=== PATIENT | male | born 1955 | race Caucasian/White ===

== ENCOUNTER → 2023-02-17 07:53 | Outpatient (CLI) | payer MEDICARE, OTHER, SELFPAY ==
--- NOTE | 2023-02-17 07:56 | DI.ECHO.S_ITS ---
[facility] +---------+ : : [address] : : : : [id number] : : : : Phone: [phone]---------+ Echocardiogram Report + + :Name: ANJEL KRUSE Study Date: 02/17/2023 Height: 68 in : :[facility] ReadingLocation: Weight: 216 lb : : Gender: Male BSA: 2.1 m2 : :: 1955 Age: 67 yrs BP: 125/86 mmHg: :Reason For Study: ABDOMINAL AORTIC ANEURYSM HR: 56 : :Ordering Physician: : :IRAJ JALLOH Performed By: JEANNIE ONOFRE : :Referring: IRAJ JALLOH : + + Interpretation Summary The ejection fraction is estimated to be 55-60%. Diastolic parameters suggest probable normal left ventricular diastolic function and normal filling pressures. The right ventricle is normal in size and function. There is moderate aortic stenosis. Pulmonary artery pressures cannot be estimated because of the lack of a measurable TR jet velocity. The ascending aorta is mildly enlarged, 4.2 cm. Procedure: A two-dimensional transthoracic echocardiogram with color flow and Doppler was performed. The study quality was technically adequate. There is no prior echocardiogram noted for this patient. The patient was in normal sinus rhythm during the exam. Left Ventricle: The left ventricle is normal in size and wall thickness. Left ventricular systolic function is normal. The ejection fraction is estimated to be 55-60%. Diastolic parameters suggest probable normal left ventricular diastolic function and normal filling pressures. Right Ventricle: The right ventricle is normal in size and function. Atria: Both atria are normal in size. There is no Doppler evidence for an interatrial shunt. Mitral Valve: The mitral valve is normal in structure and function. There is no mitral regurgitation noted. Aortic Valve: The aortic valve is moderately calcified. There is moderate aortic stenosis. The peak aortic velocity is 3.5 m/sec. The aortic valve mean gradient is 29 mmHg. There is trace aortic regurgitation. Tricuspid Valve: The tricuspid valve is normal in structure and function. No tricuspid regurgitation. Pulmonary artery pressures cannot be estimated because of the lack of a measurable TR jet velocity. Pulmonic Valve: The pulmonic valve is not well seen, but is grossly normal. There is mild pulmonic regurgitation. Great Vessels: The aortic root is borderline dilated. The ascending aorta is mildly enlarged. The IVC is of normal diameter and collapses greater than 50% with a sniff. This suggests a low right atrial pressure of 3 mm Hg. Pericardium/ Pleura There is no pericardial effusion. There is no pleural effusion. MMode/2D Measurements & Calculations LVIDd: 4.3 cm LVOT diam: 2.0 cm LVIDs: 2.8 cm Ao root diam: 3.6 cm FS: 35.4 % asc Aorta Diam: 4.2 cm IVSd: 1.1 cm Ao Arch Diam (Prox Trans): 2.7 cm LVPWd: 1.3 cm LV almonte. diameter/BSA (cm/m^2): 2.0 LV sys. diameter/BSA (cm/m^2): 1.3 LA A2 area: 21.4 cm2 RA long axis: 4.8 cm LA A4 area: 13.8 cm2 RA area: 12.4 cm2 LA length (vol): 3.8 cm RA vol: 27.0 ml LA vol: 66.2 ml RA : 12.8 ml/m2 LA vol index: 31.3 ml/m2 TAPSE: 1.8 cm Doppler Measurements & Calculations Ao V2 max: 340.4 cm/sec LVOT Max Ron: 79.3 cm/sec Ao V2 mean: 259.6 cm/sec LV V1 max P.5 mmHg Ao max P.4 mmHg LV V1 VTI: 17.0 cm Ao mean P.2 mmHg ENRIQUE(I,D): 0.72 cm2 Ao V2 VTI: 76.6 cm ENRIQUE(V,D): 0.76 cm2 sev ratio: 0.22 ENRIQUE indexed to BSA (cm^2/m^2): 0.34 AI P1/2t: 1038 msec AI dec slope: 106.3 cm/sec2 MV E max ron: 42.8 cm/sec PA V2 max: 95.3 cm/sec MV A max ron: 77.2 cm/sec PA V2 mean: 60.7 cm/sec MV E/A: 0.55 PA mean P.7 mmHg Med Peak E' Ron: 3.1 cm/sec PA pr(Accel): 22.5 mmHg E/E' med: 13.7 Lat Peak E' Ron: 5.3 cm/sec E/E' lat: 8.0 E/e' average: 10.9 MV dec time: 0.41 sec SV(LVOT): 55.5 ml Reading Physician:09:54 AM
--- NOTE | 2023-02-17 07:57 | DI.US.S_ITS ---
PROCEDURE: US ABD AORTA ANEURYSM SCREEN INDICATIONS: SCREENING TECHNIQUE: Real time scanning was performed of the aorta and iliac arteries, with image documentation. COMPARISON: None. FINDINGS: Aorta: A mild proximal abdominal aortic aneurysm is seen that measures 3 cm AP x 3.5 cm transversely. Mid-aorta measures 2.3 cm. Distal aortic diameter is 2.3 cm. Iliac arteries: Right common iliac artery measures 1.7 cm. Left common iliac artery measures 1.7 cm. IMPRESSION: Mild proximal abdominal aortic aneurysm seen measuring 3 cm AP x 3.5 cm transversely. If clinically appropriate, please consider follow-up in 3 years. Dictated by: Jonathon Robertson M.D. on 02/17/2023 at 9:39 Approved by: Jonathon Robertson M.D. on 02/17/2023 at 9:41
== END ==
PROVIDERS: PCP Nurse Practitioner Family; Referring Provider Nurse Practitioner Family; Visit Provider Nurse Practitioner Family
DX: Z13.6 Encounter for screening for cardiovascular disorders (principal); I71.40 Abdominal aortic aneurysm, without rupture, unspecified; I35.0 Nonrheumatic aortic (valve) stenosis; I37.1 Nonrheumatic pulmonary valve insufficiency; I77.89 Other specified disorders of arteries and arterioles
CPT/HCPCS: 76706; 93306

== ENCOUNTER → 2023-12-21 11:24 | Outpatient (CLI) | payer MEDICARE, OTHER, SELFPAY ==
--- NOTE | 2023-12-21 | DI.CT.S_ITS ---
PROCEDURE: CT ANGIO CHEST INDICATIONS: Thoracic aortic ectasia TECHNIQUE: After the administration of intravenous contrast, 2 mm thick sections acquired from the pulmonary apices to the posterior costophrenic angles. 3-dimensional maximum intensity projection (MIP) coronal and sagittal reformats were then acquired through the thorax. For radiation dose reduction, the following was used: automated exposure control, adjustment of mA and/or kV according to patient size. COMPARISON: None. FINDINGS: Image quality: Diagnostic. Thoracic aorta: No acute aortic dissection or aneurysm. Ascending thoracic aorta is ectatic measuring 4.3 x 4.3 cm. Minimal calcification of the thoracic aorta. Lower Neck: No enlarged lymph nodes. Thyroid: No thyroid nodules which require sonographic follow up, per consensus guidelines. Axillae: No enlarged lymph nodes. Chest Wall: Unremarkable. Bones: No acute fractures. No aggressive appearing lytic or blastic osseous lesions. Mild multilevel degenerative changes of the spine. Lungs and Pleura: No pneumothorax or pleural effusions. Right fissure solid pulmonary nodule versus lymph node measuring 3 mm (5/186). Dependent atelectasis. Patent central airways. Heart: Heart size is normal. Probable left ventricular hypertrophy. No pericardial effusion.. The mild to moderate LAD coronary vessel calcifications. Calcification of the aortic valve. Pulmonary artery: Normal in caliber. No filling defects in the central pulmonary vasculature Mediastinum and Krissy: No enlarged lymph nodes. Prominent, but not enlarged, right lower paratracheal lymph node measuring 9 mm in short axis which is nonspecific, likely reactive. Esophagus: No wall thickening. No hiatal hernia. Upper Abdomen: Limited arterial phase images of the upper abdomen are unremarkable IMPRESSION: 1. No acute aortic pathology. Ascending thoracic aorta is ectatic measuring 4.3 x 4.3 cm. 2. Calcification of the aortic valve. Heart size is normal with probable left ventricular hypertrophy. 3. Mild to moderate LAD coronary vessel calcifications. 4. Right perifissure solid pulmonary nodule versus lymph node measuring 3 mm. Fleischner guidelines: If patient is low risk, no additional follow-up needed. If patient is high risk, consider repeat CT chest in 12 months. Dictated by: Joshua Leonardo M.D. on 12/21/2023 at 16:43 Approved by: Joshua Leonardo M.D. on 12/21/2023 at 16:48
[2023-12-21 12:20] LABS: Estimated Glomerular Filt Rate > 60 mL/min (>60)
== END ==
PROVIDERS: Radiology Diagnostic Radiology; PCP Nurse Practitioner Family; Referring Provider Internal Medicine Cardiovascular Disease; Visit Provider Internal Medicine Cardiovascular Disease
DX: I77.810 Thoracic aortic ectasia (principal); I25.10 Atherosclerotic heart disease of native coronary artery without angina pectoris
CPT/HCPCS: 36415; 71275; 82565; Q9967

== ENCOUNTER → 2024-01-10 07:19 | Outpatient (CLI) | payer MEDICARE, OTHER, SELFPAY ==
--- NOTE | 2024-01-10 | DI.ECHO.S_ITS ---
[facility]---------+ [facility] +---------+ : : [address] : : : : [id number] : : : : Phone: [phone]---------+ Echocardiogram Report + + :Name: ANJEL KRUSE Study Date: 01/10/2024 Height: 68 in : :[facility] ReadingLocation: Weight: 220 lb : : Gender: Male BSA: 2.1 m2 : :: 1955 Age: 68 yrs BP: 172/100 mmHg: :Reason For Study: THORACIC AORTIC ECTASIA : :Ordering Physician: MEG, : :DENISE Simon Performed By: Sarahi Jimenes : :Referring: DENISE PAZ : + + Interpretation Summary There is mild concentric left ventricular hypertrophy. The ejection fraction is estimated to be 60-65%. Diastolic function could not be accurately assessed due to unobtainable data. The right ventricle is normal in size and function. There is severe aortic stenosis. Pulmonary artery pressures cannot be estimated because of the lack of a measurable TR jet velocity but the IVC suggests a CVP of around 3 mmHg. The ascending aorta is mildly enlarged, 4.2 cm. Compared to the prior study dated 02/17/2023, the gradient across the aortic valve has increased. Procedure: A two-dimensional transthoracic echocardiogram with color flow and Doppler was performed. The study quality was technically adequate. Comparison is made with the echocardiogram of 02/17/2023. The patient was in sinus rhythm with heart rates between 61-68 bpm during the exam. Left Ventricle: The left ventricle is normal in size. There is mild concentric left ventricular hypertrophy. The ejection fraction is estimated to be 60-65%. Diastolic function could not be accurately assessed due to unobtainable data. Right Ventricle: The right ventricle is normal in size and function. Atria: The left atrial size is normal. Right atrial size is normal. There is no Doppler evidence for an interatrial shunt. Mitral Valve: The mitral valve is normal in structure and function. There is no mitral regurgitation noted. Aortic Valve: The aortic valve is moderately calcified. There is severely reduced leaflet mobility. There is severe aortic stenosis. The peak aortic velocity is 5.0 m/sec. The aortic valve mean gradient is 64 mmHg. The calculated aortic valve area is 0.58 cm2. No aortic regurgitation is present. Tricuspid Valve: The tricuspid valve is normal in structure and function. There is trace tricuspid regurgitation. Pulmonary artery pressures cannot be estimated because of the lack of a measurable TR jet velocity but the IVC suggests a CVP of around 3 mmHg. Pulmonic Valve: The pulmonic valve leaflets are thin and pliable; valve motion is normal. There is trace pulmonic regurgitation. Great Vessels: The aortic root is normal size. The ascending aorta is mildly enlarged. The IVC is of normal diameter and collapses greater than 50% with a sniff. This suggests a low right atrial pressure of 3 mm Hg. Pericardium/ Pleura There is no pericardial effusion. There is no pleural effusion. MMode/2D Measurements & Calculations LVIDd: 5.7 cm LVOT diam: 2.1 cm LVIDs: 3.7 cm Ao root diam: 3.6 cm FS: 34.5 % asc Aorta Diam: 4.2 cm IVSd: 1.2 cm Ao Arch Diam (Prox Trans): 3.1 cm LVPWd: 1.2 cm LV almonte. diameter/BSA (cm/m^2): 2.7 LV sys. diameter/BSA (cm/m^2): 1.7 LA A2 area: 22.7 cm2 RA long axis: 6.3 cm LA A4 area: 19.4 cm2 RA area: 22.2 cm2 LA length (vol): 5.5 cm RA vol: 66.7 ml LA vol: 68.5 ml RA : 31.3 ml/m2 LA vol index: 32.2 ml/m2 IVC diam: 1.8 cm RVD1 (basal): 4.0 cm RVD2 (mid): 3.5 cm TAPSE: 1.9 cm Doppler Measurements & Calculations Ao V2 max: 493.6 cm/sec LVOT Max Ron: 82.4 cm/sec Ao V2 mean: 371.2 cm/sec LV V1 max P.7 mmHg Ao max P.5 mmHg LV V1 VTI: 19.6 cm Ao mean P.0 mmHg ENRIQUE(I,D): 0.58 cm2 Ao V2 VTI: 118.3 cm ENRIQUE(V,D): 0.59 cm2 sev ratio: 0.17 ENRIQUE indexed to BSA (cm^2/m^2): 0.27 MV E max ron: 53.1 cm/sec PA pr(Accel): 39.6 mmHg MV A max ron: 95.8 cm/sec MV E/A: 0.55 Med Peak E' Ron: 4.2 cm/sec E/E' med: 12.8 Lat Peak E' Ron: 5.4 cm/sec E/E' lat: 9.8 E/e' average: 11.3 MV dec time: 0.34 sec SV(OT): 68.8 ml Reading Physician:07:52 PM
[2024-01-10 07:50] LABS: Add Manual Diff / Slide Review NO; Basophils Absolute Auto 100 /uL (0-100); Basophils Percent Auto 0.8 % (0-2); Eosinophils Absolute Auto 300 /uL (0-450); Eosinophils Percent Auto 4.4 % (2-4); Hematocrit 39.8 % (41-53); Hemoglobin 13.6 g/dL (13.5-17.5); Lymphocytes Absolute Auto 2000 /uL (1100-4500); Lymphocytes Percent Auto 32.2 % (25-40); Mean Corpuscular HGB Conc 34.2 % (30-36); Mean Corpuscular Hemoglobin 32.8 PG (26-34); Mean Corpuscular Volume 95.8 fL (80-100); Monocytes Absolute Auto 600 /uL (0-900); Neutrophils Absolute Auto 3300 /uL (1500-7000); Neutrophils Percent Auto 52.6 % (50-75); Platelet Count 228 X10^3/uL (150-400); Red Blood Cell Count 4.16 X10^6/uL (4.5-5.9); Red Cell Distribution Width 13.8 % (11.6-14.8); White Blood Cell Count 6.3 X10^3/uL (4.5-11.0)
[2024-01-10 08:00] LABS: Hemoglobin A1C% w Est Avg Glu 6.1 % (4.0-6.0)
[2024-01-10 08:09] LABS: Alanine Aminotransferase 52 IU/L (<50); Albumin 4.2 g/dL (3.5-5.0); Albumin Globulin Ratio 1.4 (1.0-2.8); Alkaline Phosphatase 69 U/L (38-126); Aspartate Aminotransferase 44 IU/L (17-59); BUN Creatinine Ratio 26.7 (6-22); Bilirubin Total 0.7 mg/dL (0.2-1.3); Blood Urea Nitrogen 20 mg/dL (9-20); Calcium 9.5 mg/dL (8.4-10.2); Carbon Dioxide 26 mmol/L (22-32); Chloride 108 mmol/L (98-107); Cholesterol 205 mg/dL (140-199); Estimated Glomerular Filt Rate > 60 mL/min (>60); Globulin 3.1 g/dL (1.7-4.1); Glucose 111 mg/dL (80-110); HDL Cholesterol 52 mg/dL (40-60); HEMOLYSIS 23 (0-50); LDL Cholesterol Calculated 130 mg/dL (<100); Magnesium 1.9 mg/dL (1.6-2.3); Potassium 4.5 mmol/L (3.4-5.1); Sodium 140 mmol/L (137-145); Total Protein 7.3 g/dL (6.3-8.2); Triglycerides 113 mg/dL (35-150)
[2024-01-10 08:32] LABS: TSH w/ Reflex to FT4 2.66 uIU/mL (0.47-4.68)
[2024-01-10 08:34] LABS: Prostate Specific Antigen 3.12 ng/mL (0.10-4.00)
== END ==
PROVIDERS: PCP Nurse Practitioner Family; Referring Provider Internal Medicine Cardiovascular Disease; Visit Provider Internal Medicine Cardiovascular Disease
DX: I35.0 Nonrheumatic aortic (valve) stenosis (principal); I10 Essential (primary) hypertension; N40.0 Benign prostatic hyperplasia without lower urinary tract symptoms; E78.5 Hyperlipidemia, unspecified; G47.33 Obstructive sleep apnea (adult) (pediatric); R53.83 Other fatigue; Z13.1 Encounter for screening for diabetes mellitus; Z86.39 Personal history of other endocrine, nutritional and metabolic disease; I77.89 Other specified disorders of arteries and arterioles
CPT/HCPCS: 36415; 80053; 80061; 83036; 83735; 84153; 84443; 85025; 93306

== ENCOUNTER → 2024-01-27 09:45 | Outpatient (CLI) | payer MEDICARE, OTHER, SELFPAY ==
[2024-01-27 11:12] LABS: Add Manual Diff / Slide Review NO; Basophils Absolute Auto 0 /uL (0-100); Basophils Percent Auto 0.5 % (0-2); Eosinophils Absolute Auto 200 /uL (0-450); Eosinophils Percent Auto 2.1 % (2-4); Hematocrit 40.3 % (41-53); Hemoglobin 13.8 g/dL (13.5-17.5); Lymphocytes Absolute Auto 2300 /uL (1100-4500); Lymphocytes Percent Auto 31.1 % (25-40); Mean Corpuscular HGB Conc 34.2 % (30-36); Mean Corpuscular Hemoglobin 32.8 PG (26-34); Monocytes Absolute Auto 800 /uL (0-900); Monocytes Percent Auto 10.5 % (3-14); Neutrophils Absolute Auto 4100 /uL (1500-7000); Neutrophils Percent Auto 55.8 % (50-75); Platelet Count 261 X10^3/uL (150-400); Red Cell Distribution Width 13.8 % (11.6-14.8); White Blood Cell Count 7.4 X10^3/uL (4.5-11.0)
[2024-01-27 11:27] LABS: BUN Creatinine Ratio 26.9 (6-22); Blood Urea Nitrogen 21 mg/dL (9-20); Calcium 9.2 mg/dL (8.4-10.2); Carbon Dioxide 27 mmol/L (22-32); Chloride 103 mmol/L (98-107); Estimated Glomerular Filt Rate > 60 mL/min (>60); Glucose 105 mg/dL (80-110); HEMOLYSIS < 15 (0-50); Potassium 4.6 mmol/L (3.4-5.1); Sodium 135 mmol/L (137-145)
== END ==
PROVIDERS: PCP Nurse Practitioner Family; Referring Provider Internal Medicine; Visit Provider Internal Medicine
DX: I35.9 Nonrheumatic aortic valve disorder, unspecified (principal)
CPT/HCPCS: 36415; 80048; 85025

== ENCOUNTER → 2024-04-22 14:42 | Outpatient (CLI) | payer MEDICARE, OTHER, SELFPAY ==
--- NOTE | 2024-04-22 14:43 | DI.ECHO.S_ITS ---
[facility]---------+ [facility] : : [address] : [address] : : [id number] : : Phone: [phone] Echocardiogram Report + + :Name: ANJEL KRUSE Study Date: 04/22/2024 Height: 68 in : :[facility] ReadingLocation: Weight: 222 lb : : Gender: Male BSA: 2.1 m2 : :: 1955 Age: 68 yrs BP: 153/102 mmHg: :Reason For Study: S/P TAVR : :Ordering Physician: MEG, : :DENISE Simon Performed By: Lawrence Hatfield : :Referring: DENISE PAZ : + + Interpretation Summary Left ventricular wall thickness is mildly increased. The ejection fraction is estimated to be 55-60%. Diastolic parameters suggest probable normal left ventricular diastolic function and normal filling pressures. Borderline left atrial enlargement. The right ventricle is normal in size and function. There is mild mitral regurgitation. There is a well-seated, normal functioning bioprosthetic aortic valve. Pulmonary artery pressures cannot be estimated because of the lack of a measurable TR jet velocity but the IVC suggests a CVP of around 8 mmHg. The ascending aorta is mildly enlarged, 4.3 cm. Compared to the prior study dated 01/10/2024, the aortic valve has now been replaced. Procedure: A two-dimensional transthoracic echocardiogram with color flow and Doppler was performed. The study quality was technically adequate. Comparison is made with the echocardiogram of 01/10/2024. The heart rate ranged between 53-76 bpm during the study. Left Ventricle: Left ventricular wall thickness is mildly increased. The left ventricle is normal in size. The ejection fraction is estimated to be 55- 60%. Diastolic parameters suggest probable normal left ventricular diastolic function and normal filling pressures. Right Ventricle: The right ventricle is normal in size and function. Atria: Borderline left atrial enlargement. Right atrial size is normal. The interatrial septum grossly appears intact with no obvious evidence for an atrial septal defect. Mitral Valve: The mitral valve is normal. There is no mitral valve stenosis. There is mild mitral regurgitation. Aortic Valve: 23mm Ryan Anahi 3 Ulta TAVR visualized. There is a bioprosthetic aortic valve. The peak aortic velocity is 2.14 m/sec. The aortic valve mean gradient is 10.1 mmHg. No aortic regurgitation is present. Tricuspid Valve: The tricuspid valve is normal. There is no tricuspid stenosis. There is trace tricuspid regurgitation. Pulmonary artery pressures cannot be estimated because of the lack of a measurable TR jet velocity but the IVC suggests a CVP of around 8 mmHg. Pulmonic Valve: The pulmonic valve is not well visualized. There is no pulmonic valvular stenosis. There is no pulmonic valvular regurgitation. Great Vessels: The aortic root is normal size. The ascending aorta is mildly enlarged. The IVC is dilated (diameter is greater than 2.1 cm) yet it collapses greater than 50% with a sniff. This suggests a right atrial pressure of 8 mm Hg. Pericardium/ Pleura There is no pericardial effusion. There is no pleural effusion. MMode/2D Measurements & Calculations LVIDd: 6.2 cm LVOT diam: 2.1 cm LVIDs: 4.7 cm Ao root diam: 3.7 cm FS: 24.5 % asc Aorta Diam: 4.3 cm IVSd: 1.2 cm Ao Arch Diam (Prox Trans): 2.8 cm LVPWd: 1.3 cm LV almonte. diameter/BSA (cm/m^2): 2.9 LV sys. diameter/BSA (cm/m^2): 2.2 LA A2 area: 21.9 cm2 RA long axis: 5.5 cm LA A4 area: 21.1 cm2 RA area: 15.8 cm2 LA length (vol): 5.5 cm RA vol: 39.0 ml LA vol: 71.5 ml RA : 18.2 ml/m2 LA vol index: 33.5 ml/m2 IVC diam: 2.1 cm RVD1 (basal): 3.2 cm RVD2 (mid): 3.2 cm TAPSE: 2.7 cm Doppler Measurements & Calculations Ao V2 max: 213.9 cm/sec LVOT Max Ron: 108.8 cm/sec Ao V2 mean: 151.4 cm/sec LV V1 max P.7 mmHg Ao max P.3 mmHg LV V1 VTI: 29.1 cm Ao mean P.1 mmHg ENRIQUE(I,D): 2.2 cm2 Ao V2 VTI: 44.9 cm ENRIQUE(V,D): 1.8 cm2 sev ratio: 0.65 ENRIQUE indexed to BSA (cm^2/m^2): 1.0 MV E max ron: 63.8 cm/sec TR max ron: 244.3 cm/sec MV A max ron: 88.2 cm/sec TR max P.9 mmHg MV E/A: 0.72 PA V2 max: 121.4 cm/sec Med Peak E' Ron: 3.8 cm/sec PA V2 mean: 74.5 cm/sec E/E' med: 17.0 PA mean P.6 mmHg Lat Peak E' Ron: 7.3 cm/sec PA pr(Accel): 48.2 mmHg E/E' lat: 8.7 E/e' average: 12.9 MV dec time: 0.26 sec SV(LVOT): 100.4 ml Reading Physician:10:32 AM
== END ==
PROVIDERS: PCP Nurse Practitioner Family; Referring Provider Internal Medicine Cardiovascular Disease; Visit Provider Internal Medicine Cardiovascular Disease
DX: I35.0 Nonrheumatic aortic (valve) stenosis (principal); Z95.2 Presence of prosthetic heart valve; I77.89 Other specified disorders of arteries and arterioles
CPT/HCPCS: 93306

== ENCOUNTER 2024-06-07 09:31 | Emergency (ER) | payer MEDICARE, OTHER, SELFPAY ==
[2024-06-07] VITALS (12 sets, daily range): BP systolic 133–226; BP diastolic 80–113; PULSE 54–62; RESP 12–19; TEMP 36.6; O2SAT 92–98; BMI 34.2
--- NOTE | 2024-06-07 09:37 | DI.RAD.S_ITS ---
PROCEDURE: XR CHEST 1V INDICATIONS: Shortness of breath TECHNIQUE: One view of the chest was acquired. COMPARISON: None. FINDINGS: Surgical changes and devices: None. Lungs and pleura: Lungs are clear. No pleural effusions or pneumothorax. Mediastinum: Mediastinal contours appear normal. Heart size is normal. Bones and chest wall: No suspicious bony lesions. Overlying soft tissues appear unremarkable. IMPRESSION: No acute cardiopulmonary abnormality is seen. Dictated by: Angel Sharp M.D. on 06/07/2024 at 11:50 Approved by: Angel Sharp M.D. on 06/07/2024 at 11:50
--- NOTE | 2024-06-07 09:37 | EKG_ITS ---
[place] [id number] [place] [id number] Test Date: 2024-06-07 Pat Name: Dillon Toledo Department: [facility] Room: Gender: Male Branch Office Administrator: gabe : 1955 Requested By: Order Number: [id number] Reading MD: Dario Zaragoza MD Measurements Intervals [place] Rate: 55 P: 20 MA: 188 QRS: -18 QRSD: 152 T: 67 QT: 492 QTc: 470 Interpretive Statements Sinus bradycardia Left bundle branch block NO PRIOR TRACING Electronically Signed On 06-07-2024 10:51:49 PDT by Dario Zaragoza MD
[2024-06-07 09:54] LABS: Add Manual Diff / Slide Review NO; Basophils Absolute Auto 100 /uL (0-100); Basophils Percent Auto 0.8 % (0-2); Eosinophils Absolute Auto 200 /uL (0-450); Eosinophils Percent Auto 2.8 % (2-4); Hematocrit 39.6 % (41-53); Hemoglobin 13.5 g/dL (13.5-17.5); Lymphocytes Absolute Auto 2300 /uL (1100-4500); Lymphocytes Percent Auto 30.4 % (25-40); Mean Corpuscular Volume 97.1 fL (80-100); Monocytes Absolute Auto 900 /uL (0-900); Monocytes Percent Auto 11.6 % (3-14); Neutrophils Absolute Auto 4100 /uL (1500-7000); Neutrophils Percent Auto 54.4 % (50-75); Platelet Count 200 X10^3/uL (150-400); Red Blood Cell Count 4.08 X10^6/uL (4.5-5.9); Red Cell Distribution Width 13.8 % (11.6-14.8); White Blood Cell Count 7.4 X10^3/uL (4.5-11.0)
[2024-06-07 09:56] LABS: Lactate (Lactic Acid) 0.9 mmol/L (0.7-2.1)
[2024-06-07 09:57] LABS: Alanine Aminotransferase 38 IU/L (<50); Albumin 4.5 g/dL (3.5-5.0); Albumin Globulin Ratio 1.5 (1.0-2.8); Alkaline Phosphatase 83 U/L (38-126); Aspartate Aminotransferase 36 IU/L (17-59); BUN Creatinine Ratio 22.1 (6-22); Bilirubin Total 0.7 mg/dL (0.2-1.3); Blood Urea Nitrogen 19 mg/dL (9-20); Calcium 9.4 mg/dL (8.4-10.2); Carbon Dioxide 26 mmol/L (22-32); Chloride 104 mmol/L (98-107); Estimated Glomerular Filt Rate > 60 mL/min (>60); Globulin 3.1 g/dL (1.7-4.1); Glucose 121 mg/dL (80-110); HEMOLYSIS < 15 (0-50); Potassium 4.3 mmol/L (3.4-5.1); Sodium 135 mmol/L (137-145); Total Protein 7.6 g/dL (6.3-8.2)
--- NOTE | 2024-06-07 10:04 | PC.NURSE ---
NLucas from respiratory therapy accessed patient respiratory status at patient bedside following EkG completion.
--- NOTE | 2024-06-07 10:08 | ED.SOB ---
HPI - SOB/Dyspnea General Chief Complaint: Shortness of Breath/Dyspnea Stated Complaint: sob, high bp Time Seen by Provider: 06/07/24 10:01 Source: patient Mode of arrival: Ambulatory Limitations: no limitations History of Present Illness HPI Narrative: 69-year-old male with history of TAVR procedure [address] [facility], followed by operational review sergeant Dr Abarca at [facility], had postprocedure visit recent week, now with 2 days of cough productive of white-yellow sputum, no blood component, but some increased shortness of breath over the last couple of days in association with a productive cough. No fevers or chills, no sweats. No dizziness, no syncope or presyncope symptoms. Some elevated blood pressures measured at home with their wrist blood pressure cuff, taking same antihypertensive regimen of losartan and hydrochlorothiazide. He denies any pain to his anterior chest, arms, jaw, neck, back, scapula, legs. He has no leg pain or swelling symptoms. He has no prior blood clot problems to legs or lungs. He does not recall having problems with congestive heart failure. He has known left bundle branch block at least since his TAVR procedure. No known recent contacts to persons with known COVID/influenza or upper respiratory symptoms. Related Data Allergies Allergy/AdvReac Type Severity Reaction Status Date / Time No Known Drug Allergies Allergy Verified 06/07/24 09:38 Review of Systems Review of Systems Narrative: see HPI Patient History Social History Smoking Status: Unknown if ever smoked Smoking Status: Unknown if ever smoked alcohol intake frequency: holidays/special occasions only Substance Use Type: does not use Exam Narrative Exam Narrative: GENERAL: Well-developed patient, in mild distress. HEAD: Atraumatic. Normocephalic. EYES: Pupils equal round and reactive. Extraocular motions intact. No scleral icterus. No injection or drainage. ENT: Nose without bleeding, purulent drainage. Throat without erythema, tonsillar hypertrophy or exudate. Airway patent. NECK: Trachea midline. Non tender CARDIOVASCULAR: Regular rate and rhythm without murmurs, gallops, or rubs. Reported TAVR procedure 2 months ago, I could not hear murmur. RESPIRATORY: Clear to auscultation. Breath sounds equal bilaterally. No wheezes, rales, or rhonchi. GASTROINTESTINAL: Abdomen soft, non-tender, nondistended. EXTREMITIES: No edema or joint tenderness. BACK: Nontender without deformity or crepitance. No flank tenderness. NEURO: AOx3. Nonfocal neuro exam SKIN: No rash or erythema of visible areas Initial Vital Signs Initial Vital Signs: Vital Signs Temperature 97.9 F 06/07/24 09:32 Pulse Rate 57 L 06/07/24 09:32 Respiratory Rate 13 06/07/24 09:32 Blood Pressure 226/113 H 06/07/24 09:32 Pulse Oximetry 97 06/07/24 09:32 Oxygen Delivery Method Room Air 06/07/24 09:32 Course Orders Ordered: Discontinued Medications Albuterol/Ipratropium (Albuterol/Ipratropium 3 Ml Ampul) 3 ml INH NOW ONE Stop: 06/07/24 10:36 Last Admin: 06/07/24 10:54 Dose: 3 ml Documented By: SAT Vital Signs Vital signs: Vital Signs - 8 hr 06/07/24 09:32 06/07/24 09:36 06/07/24 09:36 Temperature 97.9 F Pulse Rate 57 L 59 L Respiratory Rate 13 Blood Pressure 226/113 H 226/113 H Pulse Oximetry 97 96 Oxygen Delivery Method Room Air 06/07/24 09:38 06/07/24 09:38 06/07/24 10:00 Temperature Pulse Rate 58 L 54 L Respiratory Rate 12 Blood Pressure 191/99 H Pulse Oximetry 97 96 Oxygen Delivery Method 06/07/24 10:01 06/07/24 10:01 06/07/24 10:30 Temperature Pulse Rate 56 L 57 L Respiratory Rate 15 15 Blood Pressure 173/95 H Pulse Oximetry 96 96 Oxygen Delivery Method 06/07/24 10:31 06/07/24 10:31 06/07/24 10:54 Temperature Pulse Rate 57 L 57 L Respiratory Rate 16 16 Blood Pressure 134/90 Pulse Oximetry 96 97 Oxygen Delivery Method 06/07/24 11:00 06/07/24 11:00 Temperature Pulse Rate 58 L Respiratory Rate 12 Blood Pressure 133/82 Pulse Oximetry 98 Oxygen Delivery Method MDM - SOB/Dyspnea Lab Data Attestation: I reviewed the patient's lab results. 06/07/24 09:40 06/07/24 09:40 Labs: Lab Results 06/07/24 06/07/24 Range/Units 09:40 10:44 WBC 7.4 (4.5-11.0) X10^3/uL RBC 4.08 L (4.5-5.9) X10^6/uL Hgb 13.5 (13.5-17.5) g/dL Hct 39.6 L (41-53) % MCV 97.1 (80-100) fL MCH 33.0 (26-34) PG MCHC 34.0 (30-36) % RDW 13.8 (11.6-14.8) % Plt Count 200 (150-400) X10^3/uL Neut % (Auto) 54.4 (50-75) % Lymph % (Auto) 30.4 (25-40) % [place] % (Auto) 11.6 (3-14) % Eos % (Auto) 2.8 (2-4) % Baso % (Auto) 0.8 (0-2) % Neut # (Auto) 4100 (5879-0036) /uL Lymph # (Auto) 2300 (3428-4744) /uL [place] # (Auto) 900 (0-900) /uL Eos # (Auto) 200 (0-450) /uL Baso # (Auto) 100 (0-100) /uL PT 10.8 (9.4-12.5) SECONDS INR 0.9 (0.9-1.3) Sodium 135 L (137-145) mmol/L Potassium 4.3 (3.4-5.1) mmol/L Chloride 104 (98-107) mmol/L Carbon Dioxide 26 (22-32) mmol/L BUN 19 (9-20) mg/dL Creatinine 0.86 (0.66-1.25) mg/dL Estimated GFR > 60 (>60) mL/min BUN/Creatinine Ratio 22.1 H (6-22) Glucose 121 H (80-110) mg/dL Lactate 0.9 (0.7-2.1) mmol/L Calcium 9.4 (8.4-10.2) mg/dL Total Bilirubin 0.7 (0.2-1.3) mg/dL AST 36 (17-59) IU/L ALT 38 (<50) IU/L Alkaline Phosphatase 83 (38-126) U/L Troponin I < 0.012 (0.01-0.034) ng/mL NT-Pro-B Natriuret Pep 465 H (<125) pg/mL Total Protein 7.6 (6.3-8.2) g/dL Albumin 4.5 (3.5-5.0) g/dL Globulin 3.1 (1.7-4.1) g/dL Albumin/Globulin Ratio 1.5 (1.0-2.8) SARS-CoV-2 (PCR) Negative (Negative) Influenza A (RT-PCR) Flu a negative (NEGATIVE) Influenza B (RT-PCR) Flu b negative (NEGATIVE) RSV (PCR) Negative (Negative) Imaging Data Chest x-ray: My Impression: No obvious infiltrates, no pneumothorax, no cephalization of vessels flu overload changes. ED wet read Radiologist's Impression: [address] [address] XRay Report Signed Patient: Dillon Toledo MR#: [id number] : 1955 Acct:[id number] Age/Sex: 69 / M Date of Service: 06/07/24 Loc: ED Accession Number: [id number] Procedure: XR chest 1V Ordering Provider: Virgilio Mosley MD PROCEDURE: XR CHEST 1V INDICATIONS: Shortness of breath TECHNIQUE: One view of the chest was acquired. COMPARISON: None. FINDINGS: Surgical changes and devices: None. Lungs and pleura: Lungs are clear. No pleural effusions or pneumothorax. Mediastinum: Mediastinal contours appear normal. Heart size is normal. Bones and chest wall: No suspicious bony lesions. Overlying soft tissues appear unremarkable. IMPRESSION: No acute cardiopulmonary abnormality is seen. Dictated by: Angel Sharp M.D. on 06/07/2024 at 11:50 Approved by: Angel Sharp M.D. on 06/07/2024 at 11:50 ECG Data Attestation: I personally reviewed and interpreted this ECG as follows: Interpretation: Sinus bradycardia with rate 55, with left bundle branch block changes (patient reports history of left bundle branch block). CA 188, QRS 152, QTC 470. No comparisons available. MDM Narrative Medical decision making narrative: 69-year-old male with history of TAVR procedure [address] [facility], postprocedure follow up with [facility] operational review sergeant last week, was doing well, elevated blood pressures at home using same losartan and hydrochlorothiazide antihypertensive regimen. Now with 2 days cough and nasal congestion, increased shortness of breath. No lower extremity edema. No calf pain or swelling on exam. Speaks in full sentences, no oxygen requirement. Lungs clear without crackles or wheezes. Chest x-ray preliminary no acute changes my wet read, await radiologist's report. EKG with left bundle branch block, patient reports known left bundle since TAVR procedure at least. Await labs including initial troponin. Trial SVN DuoNeb, nasal swab for COVID/flu. Chest x-ray negative, COVID negative, flu negative. No improvement of symptoms with SVN DuoNeb, declines Rx for MDI albuterol to his pharmacy. Follow up with PCP advised Monday if not improving. Return precautions discussed. Home with family, stable improved. Discharge Plan Departure Patient Disposition: Home Clinical Impression: Dyspnea, Upper respiratory infection, Nasal congestion Activity Restrictions/Additional Instructions: Prior TAVR heart valve surgery 2 months ago which apparently was tolerated well, recent post procedure visit with your operational review sergeant was reassuring, ongoing watching of your blood pressure on current same regimen of losartan and hydrochlorothiazide. Now with productive cough and nasal congestion for the last couple of days, no oxygen requirement, lungs clear. Chest x-ray unremarkable. COVID and flu swabs negative. Trial of breathing treatment did not seem to help your symptoms, declined prescription for albuterol to use as an outpatient for now. Blood pressure unremarkable range here while in the department, reported elevated at home, keep same medical regimen for now, follow up with your operational review sergeant and/or primary provider on Monday to recheck your blood pressure and symptoms. Return earlier to this/nearest emergency department for any change worsening symptoms or any concerns prior Referrals: Denise Paz DO [Physician] - Evita Mi ARNP [Primary Care Provider] - Stand Alone Forms: Patient Portal/API
[2024-06-07 10:09] LABS: NT-proBNP (BNP-Adult 18+) 465 pg/mL (<125); Troponin I < 0.012 ng/mL (0.01-0.034)
[2024-06-07 10:14] LABS: INR 0.9 (0.9-1.3); Prothrombin Time 10.8 SECONDS (9.4-12.5)
[2024-06-07] MEDS: ALBUTEROL/IPRATROPIUM 3 ML AMPUL INH (10:54)
[2024-06-07 11:34] LABS: Influenza A - CEPHEID Flu A NEGATIVE (NEGATIVE); Influenza B - CEPHEID Flu B NEGATIVE (NEGATIVE); Respiratory Syncytial Virus Negative (Negative)
[2024-06-07 11:39] LABS: COVID-19 CEPHEID 4-PLEX PCR Negative (Negative)
== END 2024-06-07 12:21 | disposition home or self-care (01) ==
PROVIDERS: Emergency Provider Emergency Medicine; PCP Nurse Practitioner Family
DX: J06.9 Acute upper respiratory infection, unspecified (principal); R06.00 Dyspnea, unspecified; R09.81 Nasal congestion; R00.1 Bradycardia, unspecified; I44.7 Left bundle-branch block, unspecified; Z11.52 Encounter for screening for COVID-19
CPT/HCPCS: 0241U; 36415; 71045; 80053; 83605; 83880; 84484; 85025; 85610; 93005; 93010; 94640; 99284

== ENCOUNTER 2025-04-07 12:07 | Emergency (ER) | payer MEDICARE, OTHER, SELFPAY ==
[2025-04-07 12:19] VITALS: BP 189/109; PULSE 81; RESP 18; TEMP 37; O2SAT 97; BMI 34.2
--- NOTE | 2025-04-07 12:26 | DI.RAD.S_ITS ---
PROCEDURE: XR SHOULDER LT MIN 2V INDICATIONS: pain TECHNIQUE: 3 views of the shoulder were acquired. COMPARISON: None. FINDINGS: Bones: No fractures or dislocations. [id number] acromioclavicular joint osteoarthritis and moderate glenohumeral joint osteoarthritis is seen. No suspicious bony lesions. Visualized ribs appear intact. Soft tissues: No suspicious soft tissue calcifications. IMPRESSION: No acute left shoulder fracture or dislocation. Moderate glenohumeral joint osteoarthritis and [id number] acromioclavicular joint osteoarthritis. Dictated by: Ravi Ma M.D. on 04/07/2025 at 12:49 Approved by: Ravi Ma M.D. on 04/07/2025 at 12:50
--- NOTE | 2025-04-07 13:48 | ED_ITS ---
HPI - Extremity Injury (Upper) General Chief Complaint: Extremity Injury, Upper Stated Complaint: hurt left shoulder Time Seen by Provider: 04/07/25 13:48 Source: patient Mode of arrival: Ambulatory History of Present Illness HPI narrative: 69-year-old male presents to the ED with left shoulder pain for the last 2 days. Patient states he has had multiple injuries to his left shoulder, he was lifting the motor of his boat that was about 60 lb, when he felt pain in his left shoulder, he said the injury down and has been experiencing pain in that left shoulder since then. Patient also reports significantly diminished range of motion in that shoulder. Patient denies numbness, tingling, weakness. Patient has been icing the shoulder with minimal relief. Patient states he has had multiple shoulder injuries prior to this, however his symptoms are much more severe this time around. No chest pain, shortness of breath. Related Data Allergies Allergy/AdvReac Type Severity Reaction Status Date / Time No Known Drug Allergies Allergy Verified 04/07/25 12:19 Review of Systems Constitutional Constitutional: Denies chills, Denies fatigue, Denies fever(s), Denies frequent falls, Denies lethargy and Denies weakness Eyes Eyes: Denies change in vision, Denies eye discharge, Denies irritation and Denies loss of vision ENT Ears, Nose, Mouth, and Throat: Denies change in voice, Denies dizziness, Denies neck pain, Denies sore throat and Denies throat swelling Cardiovascular Cardiovascular: Denies chest pain, Denies irregular heart rhythm, Denies lightheadedness, Denies palpitations, Denies dyspnea, Denies dyspnea on exertion and Denies orthopnea Respiratory Respiratory: Denies cough, Denies dyspnea, Denies dyspnea on exertion and Denies wheezing Gastrointestinal Gastrointestinal: Denies abdominal pain, Denies change in bowel habits, Denies diarrhea, Denies nausea and Denies vomiting Musculoskeletal Musculoskeletal: Denies neck pain and Denies numbness Comments: Left shoulder pain Integumentary/Breasts Skin/Breast: Denies pruritus, Denies erythema, Denies rash and Denies wounds Neurologic Neurologic: Denies behavioral changes, Denies confusion, Denies dizziness, Denies frequent falls, Denies loss of vision, Denies numbness and Denies weakness Psychiatric Psychiatric: Denies anxiety, Denies behavioral changes, Denies confusion, Denies depression, Denies homicidal ideation and Denies suicidal ideation Endocrine Endocrine: Denies fatigue, Denies flushing and Denies palpitations Hematologic/Lymphatic Hematologic/Lymphatic: Denies easy bruising Allergic/Immunologic Allergic/Immunologic: Denies urticaria, Denies throat swelling and Denies wheezing Patient History alcohol intake frequency: holidays/special occasions only Exam Narrative Exam Narrative: Const General:?cooperative, healthy appearing and comfortable [facility] Head:?normal to inspection Ears:?hearing grossly normal bilaterally Nose:?external nose normal Face and sinus:?normal facial exam and sinuses nontender Mouth:?oral mucosae normal Throat:?posterior oropharynx normal Eyes General:?appearance normal, both eyes and all related structures Neck Neck:?normal visual inspection and no lymphadenopathy noted Resp Effort & Inspection:?normal respiratory effort Auscultation:?clear to auscultation bilaterally Cardio Rate:?regular rate Rhythm:?regular rhythm Musculoskeletal There is some tenderness to palpation of the left shoulder. No deformities, bruising. Range of motion is somewhat limited by pain. Patient is neurovascularly intact. Neuro General:?patient alert, patient awake and patient oriented x3 Initial Vital Signs Initial Vital Signs: Vital Signs Temperature 98.6 F 04/07/25 12:19 Pulse Rate 81 04/07/25 12:19 Respiratory Rate 18 04/07/25 12:19 Blood Pressure 189/109 H 04/07/25 12:19 Pulse Oximetry 97 04/07/25 12:19 Oxygen Delivery Method Room Air 04/07/25 12:19 Course Orders Ordered: ED Orders 04/07/25 12:26 XR shoulder LT 2+ views Stat Vital Signs Vital signs: Vital Signs - 8 hr 04/07/25 12:19 Temperature 98.6 F Pulse Rate 81 Respiratory Rate 18 Blood Pressure 189/109 H Pulse Oximetry 97 Oxygen Delivery Method Room Air MDM - Extremity Injury (Upper) MDM Narrative Medical decision making narrative: 69-year-old male presents to the ED with left shoulder pain for the last 2 days. X-ray was obtained to rule out fracture/dislocation. X-ray shows no acute left shoulder fracture or dislocation. Moderate glenohumeral joint osteoarthritis and [id number] acromial clavicular joint arthritis. MRI was obtained to further characterize. PROCEDURE: MR SHOULDER LT WO CON INDICATIONS: injury TECHNIQUE: Noncontrast oblique coronal T2 fast spin echo with fat saturation, oblique sagittal T1 spin echo and T2 fast spin echo with fat saturation, axial T1 spin echo and T2 fast spin echo with fat saturation through the shoulder. COMPARISON: [facility], CR, XR SHOULDER LT 2+ VIEWS, 04/07/2025, 12:26. FINDINGS: Image quality: Excellent. Rotator cuff: Moderate partial articular sided tearing of the supraspinatus tendon at the critical zone extending to the distal insertion superimposed on moderate supraspinatus and infraspinatus tendinosis. Teres minor tendon is intact. Moderate subscapularis tendinosis with low-grade partial intrasubstance tearing distally. Additionally, focal edema is seen at the myotendinous junction. Rotator cuff musculature is normal in bulk. Bones and bursae: No acute trabecular bone injury or fracture. High-grade versus full-thickness cartilage loss in the glenoid that is most prominent inferiorly and posteriorly with focal subchondral cystic changes and small marginal osteophytes. There is at least moderate grade cartilage loss in the medial humeral head. Moderate degenerative changes at the acromioclavicular joint subchondral cystic changes, subchondral edema, marginal osteophyte formation. A small amount of fluid is seen in the subacromial/subdeltoid bursa. No significant glenohumeral effusion. Capsule and soft tissues: Diffuse labral degeneration. Chronic degenerative tearing is seen at the superior to posterior labrum. Proximal biceps long head tendon demonstrates moderate tendinosis. There is partial effacement of fat signal in the rotator interval. Glenohumeral ligaments are normal in thickness. IMPRESSION: 1. Moderate grade partial articular sided tearing of the supraspinatus tendon at the critical zone extending to the distal insertion superimposed on moderate supraspinatus and infraspinatus tendinosis. 2. Moderate subscapularis tendinosis and low-grade partial intrasubstance tearing at the distal insertion. Additionally, focal edema is seen near the subscapularis myotendinous junction that may represent a grade 1-2 muscle strain. 3. Moderate proximal biceps long head tendinosis. 4. Grade 3-4 chondromalacia in the glenohumeral joint. Diffuse labral degeneration and chronic degenerative tearing of the posterior superior labrum. 5. Moderate acromioclavicular joint osteoarthrosis. 6. Small subacromial/subdeltoid bursal effusion or mild bursitis. Approved by: Gonzalez Thorne M.D. on 04/07/2025 at 15:50 Discussed findings with patient. Patient was fitted in a sling. Recommend NSAIDs such as ibuprofen or Aleve, heat/ice, lidocaine patches. Recommend follow-up with PCP, ortho for further evaluation and treatment. ED return precautions were discussed with patient. Patient verbalized understanding. Medical records reviewed: Yes Discharge Plan Departure Patient Disposition: Home Clinical Impression: Rotator cuff injury Qualifiers: Encounter type: initial encounter Laterality: left Qualified Code(s): S46.002A - Unspecified injury of muscle(s) and tendon(s) of the rotator cuff of left shoulder, initial encounter Instructions: DI for Rotator Cuff Injury Activity Restrictions/Additional Instructions: You were evaluated in the ED today for left-sided shoulder pain. The x-ray did not show any fractures or dislocations. The MRI shows some rotator cuff tears and tendinosis. Initial management of these injuries include resting your shoulder, putting the arm in a sling, NSAIDs such as ibuprofen or Aleve, heat/ice, lidocaine patches. Please follow-up with an computer technical support specialist by calling [facility] at [phone]. Please also follow-up with your PCP, as you may benefit from physical therapy. Return to the ED if you have worsening symptoms, numbness, tingling, weakness. Referrals: Evita Mi ARNP [Primary Care Provider, Nursing] Stand Alone Forms: Patient Portal/API
--- NOTE | 2025-04-07 14:07 | DI.MRI.S_ITS ---
PROCEDURE: MR SHOULDER LT WO CON INDICATIONS: injury TECHNIQUE: Noncontrast oblique coronal T2 fast spin echo with fat saturation, oblique sagittal T1 spin echo and T2 fast spin echo with fat saturation, axial T1 spin echo and T2 fast spin echo with fat saturation through the shoulder. COMPARISON: [facility], CR, XR SHOULDER LT 2+ VIEWS, 04/07/2025, 12:26. FINDINGS: Image quality: Excellent. Rotator cuff: Moderate partial articular sided tearing of the supraspinatus tendon at the critical zone extending to the distal insertion superimposed on moderate supraspinatus and infraspinatus tendinosis. Teres minor tendon is intact. Moderate subscapularis tendinosis with low-grade partial intrasubstance tearing distally. Additionally, focal edema is seen at the myotendinous junction. Rotator cuff musculature is normal in bulk. Bones and bursae: No acute trabecular bone injury or fracture. High-grade versus full-thickness cartilage loss in the glenoid that is most prominent inferiorly and posteriorly with focal subchondral cystic changes and small marginal osteophytes. There is at least moderate grade cartilage loss in the medial humeral head. Moderate degenerative changes at the acromioclavicular joint subchondral cystic changes, subchondral edema, marginal osteophyte formation. A small amount of fluid is seen in the subacromial/subdeltoid bursa. No significant glenohumeral effusion. Capsule and soft tissues: Diffuse labral degeneration. Chronic degenerative tearing is seen at the superior to posterior labrum. Proximal biceps long head tendon demonstrates moderate tendinosis. There is partial effacement of fat signal in the rotator interval. Glenohumeral ligaments are normal in thickness. IMPRESSION: 1. Moderate grade partial articular sided tearing of the supraspinatus tendon at the critical zone extending to the distal insertion superimposed on moderate supraspinatus and infraspinatus tendinosis. 2. Moderate subscapularis tendinosis and low-grade partial intrasubstance tearing at the distal insertion. Additionally, focal edema is seen near the subscapularis myotendinous junction that may represent a grade 1-2 muscle strain. 3. Moderate proximal biceps long head tendinosis. 4. Grade 3-4 chondromalacia in the glenohumeral joint. Diffuse labral degeneration and chronic degenerative tearing of the posterior superior labrum. 5. Moderate acromioclavicular joint osteoarthrosis. 6. Small subacromial/subdeltoid bursal effusion or mild bursitis. Approved by: Gonzalez Thorne M.D. on 04/07/2025 at 15:50
[2025-04-07 14:39] VITALS: BP 148/68; PULSE 75; RESP 16; O2SAT 99
== END 2025-04-07 16:24 | disposition home or self-care (01) ==
PROVIDERS: Emergency Provider Student in an Organized Health Care Education/Training Program; PCP Nurse Practitioner Family
DX: S46.002A Unspecified injury of muscle(s) and tendon(s) of the rotator cuff of left shoulder, initial encounter (principal); X50.0XXA Overexertion from strenuous movement or load, initial encounter
CPT/HCPCS: 73030; 73221; 99281; 99283